=== PATIENT | female | born 1975 | race Caucasian/White ===

== ENCOUNTER 2017-07-12 17:50 | Emergency (ER) | payer SELFPAY ==
[~2017-07-12] VITALS: Ht 162.6 cm; Wt 83.9 kg
[2017-07-12 18:34] VITALS: BP 135/69
--- NOTE | 2017-07-12 19:36 | NUR ---
PT TO ER BED 4
--- NOTE | 2017-07-12 19:36 | NUR ---
Patient being evaluated by CONNOR at bedside.
--- NOTE | 2017-07-12 19:40 | NUR ---
42Y/F PT. PRESENTS TO ED WITH C/O RT. HAND PAIN. AAO X4, AMBULATORY WITH STEDAY GAIT. NO APPARENTS INJURY. C/O RT. HAND PAIN 01/16. VSS, ER DEPUTY COURT MADE AWARE OF PT. STATUS
--- NOTE | 2017-07-12 20:00 | NUR ---
Patient discharged with v/s stable. Written and verbal after care instructions given and explained. Patient alert, oriented and verbalized understanding of instructions. Ambulatory with steady gait. All questions addressed prior to discharge. ID band removed. Patient advised to follow up with PMD. Rx of MOTRIN 800 MG, TRAMADOL 50 MG given. Patient educated on indication of medication including possible reaction and side effects. Opportunity to ask questions provided and answered.
[2017-07-12 20:21] VITALS: BP 135/69
== END 2017-07-12 20:00 | disposition home or self-care (01) ==
LOC: MED 17:50
DX: S63.91XA Sprain of unspecified part of right wrist and hand, initial encounter (principal); W22.01XA Walked into wall, initial encounter; Y93.89 Activity, other specified; Y92.89 Other specified places as the place of occurrence of the external cause; Y99.8 Other external cause status
CPT/HCPCS: 73130; 99284

== ENCOUNTER 2018-12-13 15:24 | Emergency (ER) | payer SELFPAY ==
[~2018-12-13] VITALS: Ht 165.1 cm; Wt 91.2 kg
[2018-12-13 15:27] VITALS: BP 143/47
--- NOTE | 2018-12-13 15:30 | NUR ---
BIB SELF. AAO X4 C/O left SIDED OF face swelling, norberto eyes redness & pain 4/10 x TODAY. DENIES DIZZINESS, N/V, FEVER, SOB. PERRLA BRISK 3 MM. FULL CLEAR SPEECH. NORBERTO EQUAL STRENGTH TO UPPER AND LOWER EXTREMITIES. ER MADE AWARE OF PT STATUS.
[2018-12-13] MEDS ORDERED: TETRACAINE HCL/PF 0.5% OPTH 4 ML BTL OP ONE (16:15)
[2018-12-13 16:36] VITALS: BP 148/75
--- NOTE | 2018-12-13 16:36 | NUR ---
Patient discharged with v/s stable. Written and verbal after care instructions given and explained. Patient alert, oriented and verbalized understanding of instructions. Ambulatory with steady gait. All questions addressed prior to discharge. ID band removed. Patient advised to follow up with PMD. Opportunity to ask questions provided and answered.
== END 2018-12-13 16:36 | disposition home or self-care (01) ==
LOC: MED 15:24
DX: R22.0 Localized swelling, mass and lump, head (principal); Z90.49 Acquired absence of other specified parts of digestive tract; Z90.710 Acquired absence of both cervix and uterus
CPT/HCPCS: 81002; 81025; 99283

== ENCOUNTER 2020-01-29 08:50 | Emergency (ER) | payer OTHER ==
[~2020-01-29] VITALS: Ht 165.1 cm; Wt 88.5 kg
[2020-01-29 08:50] VITALS: BP 111/47
--- NOTE | 2020-01-29 09:20 | NUR ---
PT AMBULATED TO [facility]
--- NOTE | 2020-01-29 09:25 | NUR ---
44 Y/O FEMALE FROM HOME C/O RT PINKY THAT RADIATES TO RT WRIST S/P DOING DISHES YESTERDAY. PT STATES SHE FELT A POP AND HAS PAIN SINCE. /10 ACHING/THROBBING PAIN. +CMS, +PULSES. CAP REFILL <2 SEC. NO NOTICABLE SWELLING/BRUISING. PT STATES SHE BROKE WRIST 10 YRS AGO. SKIN WARM, DRY, INTACT. VSS. SITTING UPRIGHT IN [facility]. MEDHX: DENIES ALLERGIES: NKA
[2020-01-29] MEDS ORDERED: IBUP-2213 PO (09:26)
--- NOTE | 2020-01-29 09:32 | NUR ---
DR CHANG AT BEDSIDE EXAMINING PT
--- NOTE | 2020-01-29 10:25 | NUR ---
PT REFUSES SPLINT PLACEMENT IN ER, STATES SHE WANTS TO RETURN TO WORK AND WILL APPLY AT LATER TIME
[2020-01-29 10:26] VITALS: BP 111/47
--- NOTE | 2020-01-29 10:26 | NUR ---
Patient discharged with v/s stable. Written and verbal after care instructions given and explained. Patient alert, oriented and verbalized understanding of instructions. Ambulatory with steady gait. All questions addressed prior to discharge. ID band removed. Patient advised to follow up with PMD. Rx of MOTRIN 600MG given. Patient educated on indication of medication including possible reaction and side effects. Opportunity to ask questions provided and answered.
== END 2020-01-29 10:25 | disposition home or self-care (01) ==
LOC: MED 08:50
DX: M79.641 Pain in right hand (principal); Z79.899 Other long term (current) drug therapy; S63.616A Unspecified sprain of right little finger, initial encounter; W22.8XXA Striking against or struck by other objects, initial encounter; Y93.G9 Activity, other involving cooking and grilling; Y92.89 Other specified places as the place of occurrence of the external cause; Y99.8 Other external cause status
CPT/HCPCS: 73140; 99283

== ENCOUNTER 2020-11-13 08:19 | Outpatient (CLI) | payer OTHER ==
[~2020-11-13 08:19] MED LIST: IBUP-2213 PO
[2020-11-13 08:45] LABS: BASOPHILS % (AUTO) 0.4 % (0.0-2.0); EOSINOPHILS # (AUTO) 0.2 K/uL (0-0.4); EOSINOPHILS % (AUTO) 2.8 % (0.0-4.0); HEMATOCRIT 37.8 % (36-48); HEMOGLOBIN 12.4 g/dL (12.0-16.0); LYMPHOCYTES # (AUTO) 2.8 K/uL (2.5-16.5); LYMPHOCYTES % (AUTO) 35.4 % (20.5-51.1); MEAN CORPUSCULAR HEMOGLOBIN 28 pg (27-31); MEAN CORPUSCULAR HGB CONC 33 g/dL (33-37); MEAN CORPUSCULAR VOLUME 84.9 fL (80-94); MONOCYTES # (AUTO) 0.4 K/uL (0.8-1.0); MONOCYTES % (AUTO) 5.7 % (1.7-9.3); NEUTROPHILS # (AUTO) 4.4 K/uL (1.8-7.7); NEUTROPHILS % (AUTO) 55.7 % (42.2-75.2); PLATELET COUNT (AUTO) 298 K/uL (140-450); RED BLOOD CELL COUNT(AUTO) 4.45 MIL/uL (4.20-5.40); RED CELL DISTRIBUTION WIDTH 14.7 % (11.6-13.7); WHITE BLOOD COUNT (AUTO) 7.8 K/uL (4.8-10.8)
[2020-11-13 09:12] LABS: CHOL/HDL RATIO 3.6 (1-4.5); THYROID STIMULATING HORMONE 1.59 uIU/mL (0.34-3.74)
[2020-11-13 10:23] LABS: APPEARANCE,URINE CLEAR (CLEAR); BILIRUBIN,URINE NEGATIVE (NEGATIVE); BLOOD, URINE NEGATIVE (NEGATIVE); COLOR,URINE YELLOW (YELLOW); LEUKOCYTE ESTERASE ,URINE NEGATIVE (NEGATIVE); NITRITE, URINE NEGATIVE (NEGATIVE); PH,URINE 5.5 (5.0-9.0); UGLUCOSE NEGATIVE (NEGATIVE)
== END 2020-11-13 22:27 | disposition home or self-care (01) ==
LOC: MLB 08:19
PROVIDERS: ATTEND Preventive Medicine Preventive Medicine/Occupational Environmental Medicine
DX: E66.09 Other obesity due to excess calories (principal); R07.9 Chest pain, unspecified; R51.9 Headache, unspecified; R23.2 Flushing; Z68.32 Body mass index [BMI] 32.0-32.9, adult
CPT/HCPCS: 36415; 81003; 82306; 83036; 84443; 85025

== ENCOUNTER 2022-06-11 06:26 | Outpatient (CLI) | payer OTHER ==
[2022-06-11 07:28] LABS: BASOPHILS % (AUTO) 0.6 % (0.0-2.0); EOSINOPHILS # (AUTO) 0.3 K/uL (0-0.4); EOSINOPHILS % (AUTO) 3.4 % (0.0-4.0); HEMATOCRIT 39.2 % (36-48); HEMOGLOBIN 13.6 g/dL (12.0-16.0); LYMPHOCYTES # (AUTO) 2.4 K/uL (2.5-16.5); LYMPHOCYTES % (AUTO) 30.2 % (20.5-51.1); MEAN CORPUSCULAR HEMOGLOBIN 30 pg (27-31); MEAN CORPUSCULAR HGB CONC 35 g/dL (33-37); MEAN CORPUSCULAR VOLUME 87.3 fL (80-94); MONOCYTES # (AUTO) 0.4 K/uL (0.8-1.0); MONOCYTES % (AUTO) 5.6 % (1.7-9.3); NEUTROPHILS # (AUTO) 4.8 K/uL (1.8-7.7); NEUTROPHILS % (AUTO) 60.2 % (42.2-75.2); PLATELET COUNT (AUTO) 291 K/uL (140-450); RED CELL DISTRIBUTION WIDTH 12.9 % (11.6-13.7)
[2022-06-11 07:52] LABS: ALBUMIN 3.3 g/dL (3.4-5.0); ANION GAP 12.1 (8-16); CARBON DIOXIDE 26.8 mmol/L (21-32); CHOL/HDL RATIO 3.3 (1-4.5); CREATININE 0.8 mg/dL (0.6-1.3); POTASSIUM 3.9 mmol/L (3.5-5.1); THYROID STIMULATING HORMONE 2.56 uIU/mL (0.34-3.74); TOTAL BILIRUBIN 0.4 mg/dL (0.0-1.0)
== END 2022-06-11 17:23 | disposition home or self-care (01) ==
LOC: MLB 06:26
PROVIDERS: ATTEND Nurse Practitioner Acute Care
DX: Z00.00 Encounter for general adult medical examination without abnormal findings (principal); Z11.59 Encounter for screening for other viral diseases; Z13.6 Encounter for screening for cardiovascular disorders; Z83.3 Family history of diabetes mellitus
CPT/HCPCS: 80053; 82306; 83036; 84443; 85025; 86702; 86803

== ENCOUNTER → 2023-02-03 | Outpatient (CLI) | payer OTHER ==
[2023-02-03 12:15] LABS: BASOPHILS % (AUTO) 0.5 % (0.0-2.0); EOSINOPHILS # (AUTO) 0.2 K/uL (0-0.4); EOSINOPHILS % (AUTO) 2.8 % (0.0-4.0); HEMATOCRIT 37.8 % (36-48); HEMOGLOBIN 13.1 g/dL (12.0-16.0); LYMPHOCYTES # (AUTO) 3.1 K/uL (2.5-16.5); LYMPHOCYTES % (AUTO) 37.2 % (20.5-51.1); MEAN CORPUSCULAR HEMOGLOBIN 30 pg (27-31); MEAN CORPUSCULAR HGB CONC 35 g/dL (33-37); MEAN CORPUSCULAR VOLUME 85.9 fL (80-94); MONOCYTES # (AUTO) 0.5 K/uL (0.8-1.0); MONOCYTES % (AUTO) 5.9 % (1.7-9.3); NEUTROPHILS # (AUTO) 4.5 K/uL (1.8-7.7); NEUTROPHILS % (AUTO) 53.6 % (42.2-75.2); PLATELET COUNT (AUTO) 287 K/uL (140-450); RED CELL DISTRIBUTION WIDTH 13.2 % (11.6-13.7); WHITE BLOOD COUNT (AUTO) 8.4 K/uL (4.8-10.8)
[2023-02-03 13:05] LABS: ALBUMIN 3.8 g/dL (3.4-5.0); CARBON DIOXIDE 29.9 mmol/L (21-32); CHOL/HDL RATIO 2.8 (1-4.5); CREATININE 0.7 mg/dL (0.6-1.3); FREE T4 (FREE THYROXINE) 0.94 ng/dL (0.76-1.46); POTASSIUM 3.9 mmol/L (3.5-5.1); THYROID STIMULATING HORMONE 3.08 uIU/mL (0.34-3.74); TOTAL BILIRUBIN 0.4 mg/dL (0.0-1.0)
[2023-02-03 13:10] LABS: PROTHROMBIN TIME 9.8 secs (10.8-13.4)
[2023-02-03 15:36] LABS: APPEARANCE,URINE CLEAR (CLEAR); BILIRUBIN,URINE NEGATIVE (NEGATIVE); BLOOD, URINE NEGATIVE (NEGATIVE); COLOR,URINE YELLOW (YELLOW); LEUKOCYTE ESTERASE ,URINE TRACE (NEGATIVE); NITRITE, URINE NEGATIVE (NEGATIVE); UGLUCOSE NEGATIVE (NEGATIVE)
[2023-02-03 15:59] LABS: RBC,URINE 0-5 /HPF (0-5)
[2023-02-04 08:08] LABS: ESTRADIOL SERUM 19.5 pg/mL (.); FOLLICLE STIMULATING HORMONE 34.1 mIU/mL (.); LUTEINIZING HORMONE 27.9 mIU/mL (.)
== END | disposition home or self-care (01) ==
LOC: MLB 10:46
PROVIDERS: ATTEND Preventive Medicine Preventive Medicine/Occupational Environmental Medicine
DX: Z01.818 Encounter for other preprocedural examination (principal); Z90.711 Acquired absence of uterus with remaining cervical stump; Z96.89 Presence of other specified functional implants
CPT/HCPCS: 36415; 71046; 80053; 81001; 82670; 83001; 83002; 83036; 84144; 84439; 84443; 85025; 85610; 85730; 87086